=== PATIENT | male | born 1980 | race Caucasian/White ===

== ENCOUNTER 2018-06-14 15:28 | Observation (INO) ==
--- NOTE | 2018-06-14 23:12 | HP ---
Chief Complaint - Chief Complaint Date of Service: 06/14/18 Time of Service: 17:00 Chief Complaint: Chest Pain History of Present Illness: Chad is a 38 yo male with obesity, hypertension, hyperlipidemia who presented to the [facility] walk in clinic today with reports of chest pain off and on. He was worked up in the walk in clinic with EKG and troponin. Troponin was negative, but the EKG showed inverted T-waves in leads 2 and AVF, as well as V4- 6 suggesting inferior and lateral changes. He has no prior ECG to compare. At this current time he reports he is chest pain free. It has been coming and going. He also has shortness of breath with chest pain. Chest pain is dull and tight over his sternum without radiation. It is not associated with movement or food. He denies any recent changes in activity, medications, or diet. Medical History (Last Reviewed 06/14/18 @ 16:42 by AIDA Wood) Anxiety Onset Date: ~01/21/12 Depression Onset Date: Unknown Headache Onset Date: ~01/21/12 Hypertension Onset Date: ~01/21/12 Surgical History: Surgical History (Last Reviewed 06/14/18 @ 16:42 by AIDA Wood) No pertinent past surgical history Family History: Family History (Last Reviewed 06/14/18 @ 16:42 by AIDA Wood) Father Hypertension Social History: Patient Lives/Resources With Spouse Utilized Occupation Tax Preferred Language Greek Do you have any pentecostalism or No cultural preference? Smoking Status Never smoker Have you smoked in the past 12 No months Review Of Systems (GEN) - Review of Systems Generalized/Overall Review: Absent: Weakness, Chills, Fever EENTM: Present: No Symptoms Reported Respiratory: Present: Shortness of Breath. Absent: Cough, Orthopnea Cardiac: Present: Chest Pain, Palpitations, Syncope. Absent: Edema Abdominal: Present: Abdominal Pain. Absent: Nausea, Vomiting, Hematemesis Genitourinary: Present: No Symptoms Reported Musculoskeletal: Present: No Symptoms Reported Neurological: Present: No Symptoms Reported Skin: Present: No Symptoms Reported Endocrine: Present: No Symptoms Reported Immunizations: IMMUNIZATION HX Immunizations Up to Date No Allergies/Adverse Reactions: Allergies Allergy/AdvReac Type Severity Reaction Status Date / Time No Known Allergies Allergy Verified 06/14/18 14:46 Home Medications: HOME MEDICATIONS Aspirin [Aspirin Chewable] 81 mg PO DAILY 03/21/14 [Last Taken 06/13/18 13:00] Citalopram Hydrobromide [Citalopram HBr] 40 mg PO DAILY 03/21/14 [Last Taken Unknown] bupropion HCl XL 150 mg 24 hr tablet, extended release 150 mg PO QAM #30 tab [Last Taken Unknown] felodipine ER 10 mg tablet,extended release 24 hr 10 mg PO DAILY 06/14/18 [Last Taken Unknown] topiramate 100 mg tablet 100 mg PO DAILY tab 06/14/18 [Last Taken Unknown] Exam - Exam Vital Signs: Vital Signs - Last Taken Temp 36.6 C 06/14/18 20:43 Pulse 84 06/14/18 20:43 Resp 16 06/14/18 20:43 BP 159/76 H 06/14/18 20:43 Pulse Ox 97 06/14/18 20:43 Constitutional: Present: Alert, Oriented x3, Cooperative ENT Exam: Present: hearing grossly normal Eye Exam: bilateral eye: normal inspection Respiratory: Present: lungs clear, normal breath sounds Cardiovascular/Chest: Present: regular rate, rhythm, no chest tenderness, no edema, no murmur Abdomen: Present: Normal bowel sounds, soft, nontender, nondistended, no rebound tenderness, no hepatospenomegaly Extremity: Present: non-tender, normal inspection Skin Exam: Present: normal color, warm/dry, no cyanosis Lymphatic: Present: no adenopathy Neurologic: Present: no motor/sensory deficits, alert, normal mood/affect, oriented x 3 Appearance: Present: appropriate appearance, appropriate insight Eye contact: Present: cooperative, good eye contact, normal speech Assessment/Plan - Assessment/Plan (1) Chest pain Assessment: Chad is a 38 yo male with chest pain. He has risk factors of metabolic syndrome with obesity, hypertension, and hyperlipidemia. Chest pain is atypical with random patern. Due to his risk factors and ECG changes, although he has no baseline to compare, he should be admitted to observation. He will be placed on telemetry, have repeat troponin and ECG, and consider an outpatient stress test due to ECG changes showing ischemic changes in inferior and lateral leads. Problem: Acute
--- NOTE | 2018-06-15 08:40 | DS ---
(1) Chest pain Problem: Acute Qualifiers: Chest pain type: unspecified Qualified Code(s): R07.9 - Chest pain, unspecified Description of Stay: Chad is a 38 yo male with obesity and hypertension that was admitted for chest pain and ECG changes with inverted T wave in inferior and lateral leads. Initial evaluation was negative for acute [place] with negative troponin and normal chest xray. He was admitted to observation on telemetry and had repeat ECG and troponin. There were no changes in troponin or ECG. Overnight it was noted on telemetry that he had bradycardia of 40s and cardiac pauses as great as 5 seconds. These episodes were noted to primarily occur while sleeping, although some did occur while awake. He was asymptomatic during these episodes. Chad reported brief random episodes of chest tightening that lasted a few seconds over night. This morning he reports feeling well. He does admit that he has been told that he snores and stops breathing in his sleep. He has not had a stress test or sleep study in the past. These will be set up at discharge. He also reports occasional heart burn and reflux. It was suggested he could try taking over the counter ranitidine daily to see if this will help with symptoms. Procedures Performed: none Results and Findings: Lab Pending Results 06/14/18 23:05: Troponin I Less than 0.017 Discharge Location: Home Disposition: Home self-care Condition: Good Discharge Activity: Activity as tolerated Discharge Diet: Low salt Referrals: Jared Graves DO [Primary Care Provider] - Two Weeks Problem Oriented Discharge Instructions to Patient/Family: Chest Pain Observation Complete Home Medications List: Complete Home Medication List: Aspirin [Aspirin Chewable] 81 mg PO DAILY 03/21/14 Citalopram Hydrobromide [Citalopram HBr] 40 mg PO DAILY 03/21/14 bupropion HCl XL 150 mg 24 hr tablet, extended release 150 mg PO QAM #30 tab felodipine ER 10 mg tablet,extended release 24 hr 10 mg PO DAILY 06/14/18 topiramate 100 mg tablet 100 mg PO DAILY tab 06/14/18 Amb Orders for Discharge: NUC Treadmill Stress Test Time Frame: 1 Week, Facility: [facility], Location: Radiology Sleep Study Time Frame: 2 Weeks, Facility: [facility], Location : Sleep Lab
[2018-06-15] MEDS ORDERED: TOPIRAMATE 50 MG TABLET PO SCH (09:00)
[2018-06-15] MEDS ORDERED: FELODIPINE 5 MG TAB.SR.24H PO SCH (09:00)
[2018-06-15] MEDS ORDERED: CITALOPRAM HYDROBROMIDE 20 MG TABLET PO SCH (09:00)
[2018-06-15] MEDS ORDERED: ASPIRIN 81 MG TAB.CHEW PO SCH (09:00)
[2018-06-15] MEDS ORDERED: buPROPion HCL 150 MG TAB.SR.24H PO SCH (09:00)
[2018-06-15 10:24] VITALS: BP 158/82
== END 2018-06-15 10:36 | disposition home or self-care (01) ==
LOC: RT 15:28 → MS 15:28
PROVIDERS: ADMIT Family Medicine; ATTEND Family Medicine
DX: E66.01 Morbid (severe) obesity due to excess calories; R07.9 Chest pain, unspecified; E78.5 Hyperlipidemia, unspecified; Z68.44 Body mass index [BMI] 60.0-69.9, adult; E88.81 Metabolic syndrome and other insulin resistance; I10 Essential (primary) hypertension; R06.81 Apnea, not elsewhere classified
CPT/HCPCS: 36415; 71020; 71046; 84484; 93005; G0378; G0379